=== PATIENT | male | born 1975 | race Caucasian/White ===

== ENCOUNTER 2024-01-20 11:18 | Emergency (ER) | payer OTHER ==
[2024-01-20] MEDS: Lidocaine 2% with EPINEPHrine 1:100,000 20 ML MDV INJECT ONE (11:45)
[2024-01-20] MEDS: Bacitracin Oint 1 GM U/D Packet TOP ONE (11:45)
[2024-01-20] MEDS: Diphtheria,Pertussis(Acell),Tetanus Vaccine 0.5 ML Syringe IM ONE (11:54)
== END 2024-01-20 12:25 | disposition home or self-care (01) ==
LOC: LL.ED 11:18
DX: S61.512A Laceration without foreign body of left wrist, initial encounter (principal); Z23 Encounter for immunization; W26.8XXA Contact with other sharp object(s), not elsewhere classified, initial encounter; Y99.0 Civilian activity done for income or pay
CPT/HCPCS: 12001; 90471; 90715; 99283; 99283-25; J3490